=== PATIENT | female | born 1945 | race Two or more races ===

== ENCOUNTER 2017-04-21 12:15 | Outpatient (CLI) | payer OTHER | END 2017-04-21 15:59 | disposition home or self-care (01) | LOC: NUCLEAR 12:15 | DX: I50.9 Heart failure, unspecified (principal) | CPT/HCPCS: 78472; 78496; A9560 ==

== ENCOUNTER → 2017-07-16 | Outpatient (CLI) | payer OTHER | END | disposition home or self-care (01) | LOC: TOM 07:56 | DX: Z12.31 Encounter for screening mammogram for malignant neoplasm of breast (principal); Z87.898 Personal history of other specified conditions; N64.89 Other specified disorders of breast; R42 Dizziness and giddiness; G89.11 Acute pain due to trauma; G44.89 Other headache syndrome ==

== ENCOUNTER → 2021-07-15 08:54 | Outpatient (CLI) | payer OTHER | END | disposition home or self-care (01) | LOC: NUCLEAR 08:54 | PROVIDERS: ATTEND Internal Medicine Hematology & Oncology | DX: I70.213 Atherosclerosis of native arteries of extremities with intermittent claudication, bilateral legs (principal) ==

== ENCOUNTER 2021-07-16 09:18 | Outpatient (CLI) | payer OTHER | END 2021-07-16 09:19 | disposition home or self-care (01) | LOC: NUCLEAR 09:18 | PROVIDERS: ATTEND Internal Medicine Hematology & Oncology | DX: I87.2 Venous insufficiency (chronic) (peripheral) (principal) ==